=== PATIENT | female | born 1950 | race Caucasian/White ===

== ENCOUNTER → 2021-08-14 | Outpatient (CLI) | payer OTHER ==
[~2021-08-14] MED LIST: APIX5TAB PO; ASPI-556 PO; DRON400T7 PO; METO50TA18 PO; PREM625 PO
== END | disposition home or self-care (01) ==
LOC: RAH 12:38
PROVIDERS: ATTEND Internal Medicine Cardiovascular Disease
DX: Z13.6 Encounter for screening for cardiovascular disorders (principal); I48.0 Paroxysmal atrial fibrillation
CPT/HCPCS: 75571

== ENCOUNTER → 2022-04-27 | Outpatient (CLI) | payer MEDICARE | END | disposition home or self-care (01) | LOC: SHCH 14:55 | PROVIDERS: ATTEND Internal Medicine Cardiovascular Disease | DX: I35.8 Other nonrheumatic aortic valve disorders (principal); I11.9 Hypertensive heart disease without heart failure; I48.0 Paroxysmal atrial fibrillation | CPT/HCPCS: 93306 ==

== ENCOUNTER → 2023-04-29 | Outpatient (CLI) | payer MEDICARE ==
[~2023-04-29] MED LIST changes: +BIOTIN PO; +CALCIUM W/D3 PO; +CARV3.12 PO; +LETR2.5T7 PO; +METR-172 PO; +MVI PO; +NEOM500T PO; +OLME40TA18 PO; +ONDA8TAB12 PO
[2023-04-29 14:47] LABS: BASOPHILS # (AUTO) 0.04 K/uL (0.00-0.20); BASOPHILS % (AUTO) 0.6 % (0.0-5.0); EOSINOPHILS # (AUTO) 0.14 K/uL (0.00-0.70); EOSINOPHILS % (AUTO) 2.2 % (0.0-8.0); HEMATOCRIT 40.6 % (36-48); IMMATURE GRANULOCYTE ABSOLUTE 0.02 K/uL (0-1); LYMPHOCYTES % (AUTO) 14.9 % (21.0-51.0); MEAN CORPUSCULAR HGB CONC 34.5 g/dL (32.0-36.0); MEAN CORPUSCULAR VOLUME 87.1 fL (79-99); MONOCYTES # (AUTO) 0.6 K/uL (0.1-1.0); MONOCYTES % (AUTO) 9.9 % (3.0-13.0); NEUTROPHILS # (AUTO) 4.6 K/uL (1.8-7.7); NEUTROPHILS % (AUTO) 72.1 % (40.0-77.0); PLATELET COUNT (AUTO) 322 K/uL (130-400); RED BLOOD CELL COUNT(AUTO) 4.66 MIL/uL (4.00-5.50); RED CELL DISTRIBUTION WIDTH 13.8 % (11.0-15.5); WHITE BLOOD COUNT (AUTO) 6.4 K/uL (4.8-10.8)
[2023-04-29 15:04] LABS: ALBUMIN 3.9 g/dL (3.5-5.0); BILIRUBIN,TOTAL 0.9 mg/dL (0.2-1.0); CREATININE 0.7 mg/dL (0.5-1.5); POTASSIUM 4.5 mmol/L (3.5-5.1); TOTAL PROTEIN, SERUM 7.2 g/dL (6.0-8.3)
[2023-04-29 15:10] LABS: INR <= 0.93 (0.85-1.15); PROTHROMBIN TIME 10.7 SEC (9.6-11.6)
== END | disposition home or self-care (01) ==
LOC: LAB 14:02
PROVIDERS: ATTEND Internal Medicine
DX: Z01.812 Encounter for preprocedural laboratory examination (principal); C18.2 Malignant neoplasm of ascending colon; I48.0 Paroxysmal atrial fibrillation; K57.30 Diverticulosis of large intestine without perforation or abscess without bleeding; C50.919 Malignant neoplasm of unspecified site of unspecified female breast; Z80.0 Family history of malignant neoplasm of digestive organs
CPT/HCPCS: 36415; 80053; 82378; 85025; 85610; 85730

== ENCOUNTER → 2023-05-03 | Outpatient (CLI) | payer MEDICARE ==
[~2023-05-03] MED LIST changes: -BIOTIN PO; -CALCIUM W/D3 PO; -CARV3.12 PO; +IOHEXOL 350 MG/ML 100ML INFUS..BTL IV ONE; -LETR2.5T7 PO; -METR-172 PO; -MVI PO; -NEOM500T PO; -OLME40TA18 PO; -ONDA8TAB12 PO
== END | disposition home or self-care (01) ==
LOC: RAH 10:19
PROVIDERS: ATTEND Internal Medicine
DX: C18.2 Malignant neoplasm of ascending colon (principal)
CPT/HCPCS: 71260; 74178; Q9967

== ENCOUNTER → 2023-11-08 | Outpatient (CLI) | payer MEDICARE ==
[~2023-11-08] MED LIST changes: -ASPI-556 PO; +BIOTIN PO; +CALCIUM W/D3 PO; +CARV3.12 PO; -DRON400T7 PO; +LETR2.5T7 PO; -METO50TA18 PO; +MVI PO; +OLME40TA18 PO; +ONDA-245 PO; -PREM625 PO
== END | disposition home or self-care (01) ==
LOC: RAH 08:50
PROVIDERS: ATTEND Internal Medicine Cardiovascular Disease
DX: I10 Essential (primary) hypertension (principal); M47.815 Spondylosis without myelopathy or radiculopathy, thoracolumbar region
CPT/HCPCS: 75574; Q9967

== ENCOUNTER 2023-11-16 16:58 | Observation (INO) | payer MEDICARE ==
[~2023-11-16] VITALS: Ht 160 cm; Wt 68.9 kg
[~2023-11-16 16:58] MED LIST changes: -IOHEXOL 350 MG/ML 100ML INFUS..BTL IV ONE
[2023-11-16 17:20] LABS: BASOPHILS # (AUTO) 0.04 K/uL (0.00-0.20); BASOPHILS % (AUTO) 0.6 % (0.0-5.0); EOSINOPHILS # (AUTO) 0.16 K/uL (0.00-0.70); EOSINOPHILS % (AUTO) 2.4 % (0.0-8.0); HEMATOCRIT 39.2 % (36-48); IMMATURE GRANULOCYTE ABSOLUTE 0.01 K/uL (0-1); LYMPHOCYTES # (AUTO) 1.3 K/uL (1.0-4.8); LYMPHOCYTES % (AUTO) 20.1 % (21.0-51.0); MEAN CORPUSCULAR HEMOGLOBIN 28.7 pg (27.0-33.0); MEAN CORPUSCULAR HGB CONC 34.9 g/dL (32.0-36.0); MONOCYTES # (AUTO) 0.7 K/uL (0.1-1.0); MONOCYTES % (AUTO) 11.3 % (3.0-13.0); NEUTROPHILS # (AUTO) 4.3 K/uL (1.8-7.7); NEUTROPHILS % (AUTO) 65.4 % (40.0-77.0); PLATELET COUNT (AUTO) 297 K/uL (130-400); RED BLOOD CELL COUNT(AUTO) 4.78 MIL/uL (4.00-5.50); RED CELL DISTRIBUTION WIDTH 14.7 % (11.0-15.5); WHITE BLOOD COUNT (AUTO) 6.6 K/uL (4.8-10.8)
[2023-11-16 17:29] LABS: CREATININE 0.6 mg/dL (0.5-1.0); POTASSIUM 4.1 mmol/L (3.5-5.1)
[2023-11-16 17:38] LABS: ALBUMIN 3.8 g/dL (3.5-5.0); BILIRUBIN,TOTAL 0.9 mg/dL (0.2-1.0); TOTAL PROTEIN, SERUM 6.9 g/dL (6.0-8.3)
[2023-11-16] MEDS: hydrALAZine 20MG/ML VIAL IV ONE ×2 (17:53→18:18)
[2023-11-16 18:04] LABS: B-TYPE NATRIURETIC PEPTIDE 90 pg/mL (0-100)
[2023-11-16 18:08] LABS: ADD UA MICROSCOPIC YES; APPEARANCE,URINE CLEAR (CLEAR); BILIRUBIN,URINE NEGATIVE (NEGATIVE); COLOR,URINE COLORLESS (YELLOW); GLUCOSE, URINE (UA) NEGATIVE (NEGATIVE); KETONES,URINE NEGATIVE (NEGATIVE); LEUKOCYTE ESTERASE ,URINE NEGATIVE Leu/uL (NEGATIVE); NITRATE,URINE NEGATIVE (NEGATIVE); OCCULT BLOOD,URINE NEGATIVE (NEGATIVE); PROTEIN,URINE NEGATIVE (NEGATIVE); UROBILINOGEN,URINE 0.2 mg/dL (0.2-1.0)
[2023-11-16 18:09] LABS: RBC,URINE 0-1 /HPF (0-1)
[2023-11-16] MEDS ORDERED: POTASSIUM CHLORIDE 20MEQ/100ML 100 ML IV PRN (19:00)
[2023-11-16] MEDS ORDERED: acetaMINOPHEN 650 MG SUPPOSITORY RC PRN (19:00)
[2023-11-16] MEDS ORDERED: KCL 20 MEQ ERTAB PO PRN (19:00)
[2023-11-16] MEDS ORDERED: ONDANSETRON 4MG INJ IVP PRN (19:00)
[2023-11-16] MEDS ORDERED: GLUCAGON 1MG KIT 1 MG ML IM PRN (19:00)
[2023-11-16] MEDS ORDERED: LACTULOSE 20 GM/30 ML UDCUP PO PRN (19:00)
[2023-11-16] MEDS ORDERED: doCUSate SODIUM 100 MG CAP PO PRN (19:00)
[2023-11-16] MEDS ORDERED: POTASSIUM CHLORIDE 10% ELIXIR 20 MEQ/15 ML UDCUP PO PRN (19:00)
[2023-11-16] MEDS ORDERED: TEMAZEPAM 15 MG CAPSULE PO PRN (19:00)
[2023-11-16] MEDS ORDERED: DEXTROSE 50%-WATER 50 ML DISP.SYRIN IV PRN (19:00)
[2023-11-16] MEDS: 0.9% NACL 500ML IV.SOLN 500 ML IV SCH (19:30)
[2023-11-16] MEDS: morPHINE 2 MG SYG IVP ONE (20:51)
[2023-11-16] MEDS: FAMOTIDINE 20MG TAB PO SCH (20:52)
[2023-11-16] MEDS: carVEDIlol 3.125 MG TABLET PO SCH (20:53)
[2023-11-16] MEDS: INSULIN humuLIN R 100 UNIT/ML 3ML SQ SCH (21:00)
[2023-11-16 21:20] VITALS: O2SAT 97
[2023-11-16] MEDS ORDERED: CARV6.2579 PO (23:05)
[2023-11-16] MEDS ORDERED: CLON0.1T PO (23:11)
[2023-11-16] MEDS ORDERED: TELM80TA10 PO (23:11)
[2023-11-16] MEDS ORDERED: NITR0.4T50 SL (23:11)
[2023-11-16] MEDS ORDERED: DOCU-116 PO (23:14)
[2023-11-16] MEDS ORDERED: PSYL660P17 PO (23:15)
[2023-11-17] VITALS (7 sets, daily range): BP systolic 117–184; BP diastolic 65–91; PULSE 64–75; RESP 16–19; TEMP 97.5–99.3; O2SAT 99
[2023-11-17] MEDS ORDERED: NITROGLYCERIN 0.4 MG SL TAB SL PRN
[2023-11-17] MEDS: hydrALAZine 20MG/ML VIAL IV PRN (00:45)
[2023-11-17] MEDS: acetaMINOPHEN 325 MG TAB PO PRN (00:46)
[2023-11-17] MEDS: APIXaban 5 MG TABLET PO ONE (00:46)
[2023-11-17] MEDS: ketOROlac 30MG VIAL (30MG/ML) IVP SCH (03:16)
[2023-11-17 03:55] LABS: SARS-CoV-2, RNA, NAAT NEGATIVE SARS CoV-2 (NEGATIVE)
[2023-11-17 03:59] LABS: INFLUENZA TYPE A Negative For Type A (NEGATIVE); INFLUENZA TYPE B Negative For Type B (NEGATIVE)
[2023-11-17 06:57] LABS: BASOPHILS # (AUTO) 0.03 K/uL (0.00-0.20); BASOPHILS % (AUTO) 0.6 % (0.0-5.0); EOSINOPHILS # (AUTO) 0.13 K/uL (0.00-0.70); EOSINOPHILS % (AUTO) 2.4 % (0.0-8.0); HEMATOCRIT 36.4 % (36-48); IMMATURE GRANULOCYTE ABSOLUTE 0.01 K/uL (0-1); LYMPHOCYTES # (AUTO) 0.9 K/uL (1.0-4.8); LYMPHOCYTES % (AUTO) 16.4 % (21.0-51.0); MEAN CORPUSCULAR HGB CONC 34.3 g/dL (32.0-36.0); MEAN CORPUSCULAR VOLUME 84.5 fL (79-99); MONOCYTES # (AUTO) 0.8 K/uL (0.1-1.0); MONOCYTES % (AUTO) 14.5 % (3.0-13.0); NEUTROPHILS # (AUTO) 3.6 K/uL (1.8-7.7); NEUTROPHILS % (AUTO) 65.9 % (40.0-77.0); PLATELET COUNT (AUTO) 270 K/uL (130-400); RED BLOOD CELL COUNT(AUTO) 4.31 MIL/uL (4.00-5.50); RED CELL DISTRIBUTION WIDTH 15.1 % (11.0-15.5); WHITE BLOOD COUNT (AUTO) 5.4 K/uL (4.8-10.8)
[2023-11-17 07:23] LABS: CREATININE 0.6 mg/dL (0.5-1.0); MAGNESIUM 1.6 mg/dL (1.80-2.40); PHOSPHORUS 4.2 mg/dL (2.5-4.9); THYROID STIMULATING HORMONE 2.86 uIU/mL (0.36-3.74)
[2023-11-17] MEDS: carVEDIlol 6.25 MG TABLET PO SCH (08:27)
[2023-11-17] MEDS: MULTIVITAMIN TABLET PO SCH (08:27)
[2023-11-17] MEDS: APIXaban 5 MG TABLET PO SCH (08:28)
[2023-11-17] MEDS: doCUSate SODIUM 100 MG CAP PO SCH (08:28)
[2023-11-17] MEDS: LoSARTan 100 MG TABLET PO SCH (08:29)
[2023-11-17] MEDS: PSYLLIUM SEED 1 EACH PACKET PO SCH (08:29)
[2023-11-17] MEDS: CHOLECALCIFEROL PO SCH (08:31)
[2023-11-17] MEDS: MAGNESIUM 2GM PREMIX 50ML 50 ML IV PRN (08:31)
[2023-11-17] MEDS: CALCIUM PO SCH (08:31)
[2023-11-17] MEDS ORDERED: NON-FORMULARY MEDICATION 1 EACH (Telmisartan 80 MG) PO SCH (09:00)
[2023-11-17] MEDS ORDERED: PSYLLIUM HUSK 660 GM PO SCH (09:00)
[2023-11-17] MEDS ORDERED: GUM PO SCH (09:00)
[2023-11-17] MEDS: cloNIDine HCL 0.1 MG TABLET PO PRN (14:40)
[2023-11-17] MEDS ORDERED: LOSA-420 PO (15:08)
== END 2023-11-17 16:52 | disposition home or self-care (01) ==
LOC: EDH 16:58 → EDHIP 18:54 → 2AH 20:57
PROVIDERS: ADMIT Internal Medicine; ATTEND Internal Medicine
DX: I48.0 Paroxysmal atrial fibrillation (principal); Z20.822 Contact with and (suspected) exposure to COVID-19; I16.1 Hypertensive emergency; I10 Essential (primary) hypertension; E87.1 Hypo-osmolality and hyponatremia; R06.00 Dyspnea, unspecified; R42 Dizziness and giddiness; E78.5 Hyperlipidemia, unspecified; R41.0 Disorientation, unspecified; R60.0 Localized edema; Z85.3 Personal history of malignant neoplasm of breast; Z85.038 Personal history of other malignant neoplasm of large intestine; Z90.710 Acquired absence of both cervix and uterus; Z79.01 Long term (current) use of anticoagulants; Z92.21 Personal history of antineoplastic chemotherapy; Z98.82 Breast implant status; Z79.899 Other long term (current) drug therapy; Z86.2 Personal history of diseases of the blood and blood-forming organs and certain disorders involving the immune mechanism
CPT/HCPCS: 96375 ×2; 82550; 84484 ×3; 80053; 83880; 85025 ×2; 82948 ×4; 81001; 36415 ×2; 71045; 93880; 99291; 93005 ×4; 96376; 96365; 96366; 84443; 83735; 84100; 80048; 87804 ×2; 87635; 76770; 93306; 93356; G0378 ×21; J7040 ×2; J2270; J0360 ×2; J3475; J1885

== ENCOUNTER 2024-01-04 02:36 | Emergency (ER) | payer MEDICARE ==
[~2024-01-04 02:36] MED LIST changes: -CARV3.12 PO; +CARV6.2579 PO; +CLON0.1T PO; +DOCU-116 PO; +LOSA-420 PO; +NITR0.4T50 SL; -OLME40TA18 PO; -ONDA-245 PO; +PSYL660P17 PO
[2024-01-04] MEDS: morPHINE 4 MG SYG IVP ONE (03:12)
[2024-01-04] MEDS: ASPIRIN 81MG CHEW TAB PO ONE (03:12)
[2024-01-04 03:19] LABS: BASOPHILS # (AUTO) 0.04 K/uL (0.00-0.20); BASOPHILS % (AUTO) 0.7 % (0.0-5.0); EOSINOPHILS # (AUTO) 0.12 K/uL (0.00-0.70); HEMATOCRIT 37.9 % (36-48); IMMATURE GRANULOCYTE ABSOLUTE 0.02 K/uL (0-1); LYMPHOCYTES # (AUTO) 1.4 K/uL (1.0-4.8); LYMPHOCYTES % (AUTO) 23.3 % (21.0-51.0); MEAN CORPUSCULAR HEMOGLOBIN 29.6 pg (27.0-33.0); MEAN CORPUSCULAR HGB CONC 35.6 g/dL (32.0-36.0); MEAN CORPUSCULAR VOLUME 83.1 fL (79-99); MONOCYTES # (AUTO) 0.8 K/uL (0.1-1.0); MONOCYTES % (AUTO) 13.8 % (3.0-13.0); NEUTROPHILS # (AUTO) 3.5 K/uL (1.8-7.7); NEUTROPHILS % (AUTO) 59.9 % (40.0-77.0); PLATELET COUNT (AUTO) 270 K/uL (130-400); RED BLOOD CELL COUNT(AUTO) 4.56 MIL/uL (4.00-5.50); RED CELL DISTRIBUTION WIDTH 13.9 % (11.0-15.5); WHITE BLOOD COUNT (AUTO) 5.9 K/uL (4.8-10.8)
[2024-01-04 03:24] LABS: CREATININE 0.6 mg/dL (0.5-1.0); MAGNESIUM 1.5 mg/dL (1.80-2.40); POTASSIUM 3.8 mmol/L (3.5-5.1)
[2024-01-04 04:00] LABS: B-TYPE NATRIURETIC PEPTIDE 139 pg/mL (0-100)
[2024-01-04] MEDS: hydrALAZine 20MG/ML VIAL IV ONE ×2 (04:33→06:09)
[2024-01-04] MEDS: NITROGLYCERIN 0.4 MG SL TAB SL PRN (04:38)
[2024-01-04 05:41] LABS: APPEARANCE,URINE CLEAR (CLEAR); BILIRUBIN,URINE NEGATIVE (NEGATIVE); COLOR,URINE COLORLESS (YELLOW); GLUCOSE, URINE (UA) NEGATIVE (NEGATIVE); KETONES,URINE NEGATIVE (NEGATIVE); LEUKOCYTE ESTERASE ,URINE NEGATIVE Leu/uL (NEGATIVE); NITRATE,URINE NEGATIVE (NEGATIVE); OCCULT BLOOD,URINE NEGATIVE (NEGATIVE); PH,URINE 6.5 (5.0-8.0); PROTEIN,URINE NEGATIVE (NEGATIVE); UROBILINOGEN,URINE 0.2 mg/dL (0.2-1.0)
[2024-01-04 05:42] LABS: ADD UA MICROSCOPIC NO
[2024-01-04] MEDS: MAGNESIUM 2GM PREMIX 50ML 50 ML IV SCH (06:11)
[2024-01-04 06:34] VITALS: BP 154/51; PULSE 68; RESP 16; O2SAT 98
[2024-01-04] MEDS ORDERED: MAGNESIUM 2GM PREMIX 50ML 50 ML IV STA (07:27)
[2024-01-04] MEDS ORDERED: 0.9%NACL 1000ML 1,000 ML IV ONE (07:30)
== END 2024-01-04 07:56 | disposition home or self-care (01) ==
LOC: EDH 02:36
DX: I11.9 Hypertensive heart disease without heart failure (principal); E11.9 Type 2 diabetes mellitus without complications; Z79.01 Long term (current) use of anticoagulants; Z79.811 Long term (current) use of aromatase inhibitors; Z79.899 Other long term (current) drug therapy; Z90.710 Acquired absence of both cervix and uterus; Z98.890 Other specified postprocedural states
CPT/HCPCS: 99285; 96374; 96375; 71045; 83735; 84484; 80048; 83880; 85025; 81003; 36415; 96376; J3475; J0360; J2270

== ENCOUNTER → 2024-02-03 | Outpatient (CLI) | payer MEDICARE ==
[2024-02-03 13:43] LABS: ALBUMIN 3.8 g/dL (3.5-5.0); BILIRUBIN,TOTAL 0.7 mg/dL (0.2-1.0); CREATININE 0.6 mg/dL (0.5-1.0); POTASSIUM 4.2 mmol/L (3.5-5.1); THYROID STIMULATING HORMONE 0.9 uIU/mL (0.36-3.74); TOTAL PROTEIN, SERUM 6.7 g/dL (6.0-8.3)
[2024-02-07 21:08] LABS: PROTEIN/CREATININE RATIO 195 mg/g creat (0-200)
[2024-02-14 00:08] LABS: U DOPAMINE UG/DAY 115 ug/L (Undefined)
== END | disposition home or self-care (01) ==
LOC: LAB 12:21
PROVIDERS: ATTEND Internal Medicine Cardiovascular Disease
DX: I10 Essential (primary) hypertension (principal); Z79.899 Other long term (current) drug therapy
CPT/HCPCS: 36415; 80053; 82043; 82088; 82382; 82570; 83835; 84156; 84439; 84443; 84481

== ENCOUNTER → 2024-02-17 | Outpatient (CLI) | payer MEDICARE | END | disposition home or self-care (01) | LOC: SHCH 07:53 | PROVIDERS: ATTEND Internal Medicine Cardiovascular Disease | DX: I10 Essential (primary) hypertension (principal) | CPT/HCPCS: 93975 ==

== ENCOUNTER → 2024-04-09 | Outpatient (CLI) | payer MEDICARE ==
[2024-04-09 16:25] LABS: CREATININE 0.7 mg/dL (0.5-1.0); POTASSIUM 4.6 mmol/L (3.5-5.1)
== END | disposition home or self-care (01) ==
LOC: LAB 15:47
PROVIDERS: ATTEND Internal Medicine Cardiovascular Disease
DX: Z01.812 Encounter for preprocedural laboratory examination (principal); I73.9 Peripheral vascular disease, unspecified
CPT/HCPCS: 36415; 80048

== ENCOUNTER → 2024-04-20 | Outpatient (CLI) | payer MEDICARE ==
[~2024-04-20] MED LIST changes: +IOHEXOL 350 MG/ML 100ML INFUS..BTL IV ONE; +IOHEXOL-350 50ML VIAL IV ONE
--- NOTE | 2024-04-20 11:50 | HMCIMG ---
Exam Type: CT angiogram abdomen and pelvis and lower extremities run-off with contrast Exam Type: CT ANGIO ABD AORTA W RUNOFF Clinical Information: PVD Comparison: None Technique: Routine helical scanning at 5mm collimation through the abdomen and pelvis after contrast administration. In addition, sagittal and coronary formations of the abdomen pelvis and surface rendering three-dimensional reconstructions of the abdominal aorta and the bilateral lower extremity arterial system were performed. Findings: The vascular examination is abnormal. There is atheromatous plaque of the abdominal aorta, iliac arteries, superficial femoral arteries and popliteal arteries, without occlusion. Extensive plaque of the runoff vessels is seen bilaterally. Bifurcations are preserved. On the right side, there is significant disease of the anterior and posterior tibial arteries. The anterior tibial artery is occluded above the ankle level and reconstitutes distally. The posterior tibial artery shows severe disease and is occluded above the ankle level and the interosseous artery is also occluded. Runoff is minimal. On the left side, the anterior tibial artery is occluded above the ankle level with immediate reconstitution. Posterior tibial artery shows severe disease and also appears occluded at the ankle level and the interosseous artery shows significant disease and does not reach the mid leg level. There is no aortic aneurysm. There is no occlusion. There is no dissection. There is no extravasation to suggest laceration or rupture. No evidence of nephro or ureterolithiasis is found. No hydronephrosis or ureteral dilatation is seen. The visualized portion of the stomach is unremarkable. It shows no wall thickening. No gross ulceration is seen. It is not overly distended. There are no surrounding inflammatory changes. No wall lesions are identified to suggest cancer. The visualized portion of the spleen is unremarkable. It is not enlarged. The pancreas shows normal anatomy. It is not fatty replaced. It shows no lesions. The pancreatic duct is not dilated. The gallbladder is unremarkable. It shows no cholelithiasis. The gallbladder wall is normal in thickness. There is no pericholecystic fluid. The is no acute or chronic inflammation noted. The adrenal glands are unremarkable. There is no enlargement. No lesions are noted. The visualized portion of the liver is unremarkable. It shows no focal masses. The appendix is unremarkable. It shows no evidence of inflammation. No appendicolith is seen. The small bowel is unremarkable. There is no evidence of dilatation to suggest obstruction. No evidence of adynamic ileus is seen. There is no small bowel wall thickening to suggest enteritis. There is diverticulosis. There is no evidence of acute inflammation to suggest diverticulitis. Postoperative changes of the right colon are seen. The colon is otherwise unremarkable. The urinary bladder is unremarkable. There is no wall thickening to suggest tumor or inflammation. There are no intraluminal calculi. There are no diverticula. There is no evidence of chronic bladder outlet obstruction. There is no evidence of urinary bladder distention to suggest urinary retention. The other pelvic structures are unremarkable. The bony and vascular structures are unremarkable for the patient's age. IMPRESSION: Significant peripheral vascular disease. Other chronic findings. This study was performed using dose reduction techniques to include automated exposure control and/or adjustment of the mA and/or kV according to patient size.
== END | disposition home or self-care (01) ==
LOC: RAH 09:31 → EDSTATUS 10:00
PROVIDERS: ATTEND Internal Medicine Cardiovascular Disease
DX: I73.9 Peripheral vascular disease, unspecified (principal); K57.90 Diverticulosis of intestine, part unspecified, without perforation or abscess without bleeding
CPT/HCPCS: 75635; Q9967 ×2

== ENCOUNTER 2024-08-07 06:57 | Day surgery (SDC) | payer MEDICARE ==
[2024-08-02 11:31] VITALS: BP 138/72; PULSE 60; RESP 16; TEMP 97.3
[2024-08-02 11:32] LABS: BASOPHILS # (AUTO) 0.03 K/uL (0.00-0.20); BASOPHILS % (AUTO) 0.6 % (0.0-5.0); EOSINOPHILS # (AUTO) 0.11 K/uL (0.00-0.70); EOSINOPHILS % (AUTO) 2.3 % (0.0-8.0); HEMATOCRIT 38.3 % (36-48); IMMATURE GRANULOCYTE ABSOLUTE 0.01 K/uL (0-1); LYMPHOCYTES % (AUTO) 21.4 % (21.0-51.0); MEAN CORPUSCULAR HEMOGLOBIN 30.2 pg (27.0-33.0); MEAN CORPUSCULAR HGB CONC 34.2 g/dL (32.0-36.0); MEAN CORPUSCULAR VOLUME 88.2 fL (79-99); MONOCYTES # (AUTO) 0.6 K/uL (0.1-1.0); MONOCYTES % (AUTO) 12.7 % (3.0-13.0); NEUTROPHILS % (AUTO) 62.8 % (40.0-77.0); PLATELET COUNT (AUTO) 347 K/uL (130-400); RED BLOOD CELL COUNT(AUTO) 4.34 MIL/uL (4.00-5.50); RED CELL DISTRIBUTION WIDTH 13.2 % (11.0-15.5); WHITE BLOOD COUNT (AUTO) 4.7 K/uL (4.8-10.8)
[2024-08-02 11:40] LABS: CREATININE 0.6 mg/dL (0.5-1.0); POTASSIUM 4.7 mmol/L (3.5-5.1)
[~2024-08-07] VITALS: Ht 160 cm; Wt 66.8 kg
[~2024-08-07 06:57] MED LIST changes: +AMLO-257 PO; -BIOTIN PO; +FLEC100T3 PO; +FLEC50TA3 PO; -IOHEXOL 350 MG/ML 100ML INFUS..BTL IV ONE; -IOHEXOL-350 50ML VIAL IV ONE; -LOSA-420 PO; -MVI PO; -NITR0.4T50 SL; -PSYL660P17 PO; +SEMA1PEN3 SQ; +TELM80TA10 PO; +mvi PO
[2024-08-07 07:25] VITALS: BP 136/80; PULSE 104; RESP 17; TEMP 97
--- NOTE | 2024-08-07 07:40 | EKG ---
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
[2024-08-07] MEDS ORDERED: proPOFol 10 MG/ML 20ML VIAL IV ONE (10:08)
--- NOTE | 2024-08-07 10:17 | NUR ---
PT SYNCHRONIZED CARDIOVERTED BY DR. ROSENBAUM 150 JOULES PT TOLERATED WELL NAD VSS.
--- NOTE | 2024-08-07 10:26 | NUR ---
PT AWAKE SPEAKING WITH STAFF VSS NAD. DR. ROSENBAUM AT BEDSIDE SPEAKING WITH PT AND FRIEND
[2024-08-07 10:30] VITALS: BP 98/40; PULSE 60; RESP 15; TEMP 97.4
[2024-08-07 10:40] VITALS: BP 111/57; PULSE 61; RESP 14
--- NOTE | 2024-08-07 10:44 | EKG ---
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
[2024-08-07 10:55] VITALS: BP 117/62; PULSE 63; RESP 16
[2024-08-07 11:10] VITALS: BP 128/64; PULSE 58; RESP 14
[2024-08-07 11:25] VITALS: BP 118/67; PULSE 62; RESP 14
--- NOTE | 2024-09-04 12:29 | PRN ---
Procedure Note Date of procedure: 08/07/24 weight Diagnosis: Persistent atrial fibrillation Procedure: Cardioversion Physician: Arsh Rosenbaum MD The patient was brought to the day patient area in a fasting state. Anesthesia was provided by the anesthesia service. Cardioversion was performed with a synchronized shock at 200 joules resulting in sinus rhythm. The patient tolerated the procedure well. Final diagnosis: Persistent atrial fibrillation, status post successful cardioversion Disposition: The patient will be discharged later today and will follow up with me in the office in approximately two weeks. ARSH ROSENBAUM MD Sep 04, 2024 12:29
== END 2024-08-07 11:30 | disposition home or self-care (01) ==
LOC: DAH 06:57
PROVIDERS: ATTEND Internal Medicine Cardiovascular Disease
DX: I48.19 Other persistent atrial fibrillation (principal); I10 Essential (primary) hypertension; I48.0 Paroxysmal atrial fibrillation; E87.1 Hypo-osmolality and hyponatremia; G62.9 Polyneuropathy, unspecified; Z85.038 Personal history of other malignant neoplasm of large intestine; Z79.899 Other long term (current) drug therapy; Z98.890 Other specified postprocedural states; Z82.49 Family history of ischemic heart disease and other diseases of the circulatory system
CPT/HCPCS: 80048; 85025; 36415; 92960; 93005 ×2; J2704; A4620; A4215; A4222; A4221; A4663; A4216; A4606; A4223 ×3; J3490

== ENCOUNTER 2024-11-28 06:44 | Observation (INO) | payer MEDICARE ==
[2024-11-26 11:26] LABS: IMMATURE GRANULOCYTE ABSOLUTE 0.02 K/uL (0-1); NUCLEATED RED BLOOD CELLS 0.0 % (0.0-0.19); PLATELET COUNT (AUTO) 285 K/uL (130-400); RED BLOOD CELL COUNT(AUTO) 4.62 MIL/uL (4.00-5.50); RED CELL DISTRIBUTION WIDTH 14.6 % (11.0-15.5); WHITE BLOOD COUNT (AUTO) 5.6 K/uL (4.8-10.8)
[2024-11-26 11:33] LABS: CREATININE 0.5 mg/dL (0.5-1.0); GLOMERULAR FILTR. RATE CALC 99.0 mL/min (>90); GLUCOSE,RANDOM 103.0 mg/dL (70-105); SODIUM SERUM 130.0 mmol/L (136-145); UREA NITROGEN, BLOOD 7.0 mg/dL (7-18)
[2024-11-26 11:45] LABS: INR 1.06 (0.85-1.15)
[2024-11-26 12:24] VITALS: BP 140/66; PULSE 62; RESP 18; TEMP 97.2
--- NOTE | 2024-11-26 13:50 | EKG ---
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
--- NOTE | 2024-11-27 10:20 | NUR ---
REPORT REPORTED SODIUM AND CHLORIDE TO ROZINA REDMOND. OK TO PROCEED
[2024-11-28] VITALS (14 sets, daily range): BP systolic 127–189; BP diastolic 54–92; PULSE 57–70; RESP 15–19; TEMP 97.7–97.9; O2SAT 97
[~2024-11-28] VITALS: Ht 160 cm; Wt 67.8 kg
[~2024-11-28 06:44] MED LIST changes: -CALCIUM W/D3 PO; -FLEC100T3 PO; +metamucil PO; -mvi PO
[2024-11-28] MEDS ORDERED: LIDOCAINE HCL 400MG/20ML VIAL ONE (08:57)
[2024-11-28] MEDS ORDERED: IODIXANOL 320 MG/ML 100 ML VIAL ONE ×2 (08:57→09:14)
[2024-11-28] MEDS ORDERED: HEParin-NS 1,000 UNIT/500 ML 1,000 ML IV ONE (08:58)
[2024-11-28] MEDS ORDERED: NITROGLYCERIN 50MG VIAL ONE (08:58)
[2024-11-28] MEDS ORDERED: MIDAZOLAM HCL 1 MG/ML 2ML VIAL ONE (09:20)
[2024-11-28] MEDS ORDERED: ASPIRIN 81MG CHEW TAB ONE (10:32)
--- NOTE | 2024-11-28 10:47 | PRN ---
Procedure Note INDICATION FOR PROCEDURE: [] Renovascular hypertension malignant hypertension hypertensive heart disease with diastolic congestive heart failure PROCEDURE: [] Conscious sedation Abdominal aortogram Selective bilateral renal arteriography Intravascular ultrasound of bilateral renal arteries Angioplasty and stent placement to right renal artery with the use of a 6 mm x 12 mm herculink stent Primary stent placement to left renal artery with the use of a 5 mm x 12 mm Herculink stent DATE OF PROCEDURE: November 28, 2024 GROUNDS FOREMAN: Nakul Sandoval MD, F.A.C.C. PROCEDURE NOTE: [] Patient was electively brought to catheterization suite and prepped and draped in sterile fashion. An IV was started if not already in place in both groins were exposed for arterial access. 2% lidocaine was used for local anesthesia and then a micropuncture kit was used to gain access and once free-flowing motor was seen modified Seldinger technique was utilized to place a six Guatemalan sheath into the right common femoral artery. Next an Omni flush catheter was then placed into the abdominal aorta pressure measurements were obtained and then an aortogram was performed. Renal arteries were well-visualized and findings were as described below. Initially an RDC guide catheter was then placed into the left renal artery and contrast injections were performed. Next a BMW wire 0.014 in was then placed in the distal portion of the left renal artery. Intravascular ultrasound catheter was then placed over wire was then done with catheter showing vessel to be a proximally 5.2-5.4 mm with a critical stenosis of 75-80% soft plaque at the proximal segment. I then passed a 5 mm x 12 mm hurt you link lead stent into the ostium and proximal portion and deployed it. This was deployed to nominal pressure. Follow up intravascular ultrasound interrogation revealed excellent stent placement with appropriate size with a well-opposed stent. Next the RTC guide was then attempted to get into the right renal artery but this was a downward turning artery and I then exchanged guides for a IM guide six Guatemalan. We then wired it with the 014 wire BMW and then performed intravascular ultrasound again revealing significant stenosis of greater than 80-85% of the ostial and proximal portion of the right renal artery. This vessel was slightly bigger. I then tried to pass a 6 mm x 12 mm heard yelling stent but secondary to wire and guide I was unable to pass stent. I then decided to get rid of the BMW wire in and I went with a 0.014 in choice PT extra-support wire to Atarax for support and then I used a 5 mm x 12 mm balloon NC to pre dilate the ostial and proximal portion up to 5.22 mm. I then advanced the guide as balloon was deflated and seated it well into the vessel. Next balloon was removed and then a 6 mm x 12 mm hertz healing stent was then placed into the ostial and proximal portion of the right renal artery and deployed to 5.66 mm. I then brought the delivery system back out into the aorta and flared the proximal portion and ostial portion to greater than 6 mm. Follow up contrast injection well no evidence of dissection or perforation. Follow up intravascular ultrasound revealed excellent stent apposition. At end of case sheath shot was done Perclose device was used for closure of arteriotomy site and no complications occurred. FINDINGS: [] Critical stenosis of left renal artery at 75-80% Critical stenosis of right renal artery and 80-85% Successful primary stent placement to left renal artery with the use of a 5 mm x 12 mm Hg herculink stent Successful angioplasty and stent placement to right renal artery with the use of a 6 mm x 12 mm herculink stent PLAN: [] Secondary to patient's other social determinants of health I think it would be best that patient stay in the hospital overnight on observation status. We will initiate aspirin and clopidogrel today. Patient will initiate Eliquis tonight Probable discharge home in a.m. IV hydration Patient will be on aspirin clopidogrel and Eliquis for one month and then clopidogrel and Eliquis for three months total thereafter Eliquis only NAKUL SANDOVAL MD Nov 28, 2024 10:47
[2024-11-28] MEDS ORDERED: GLUCAGON 1MG KIT 1 MG ML IM PRN (11:00)
[2024-11-28] MEDS ORDERED: NITROGLYCERIN 0.4 MG SL TAB SL PRN (11:00)
[2024-11-28] MEDS ORDERED: DEXTROSE 50%-WATER 50 ML DISP.SYRIN IV PRN (11:00)
--- NOTE | 2024-11-28 11:15 | NUR ---
ARRIVED TO UNIT PT ARRIVED TO UNIT. DENIES ANY PAIN AT THE MOMENT. DRESSING TO RIGHT GROIN DRY AND IN TACT. BED POSITION TO LOWEST POSITION PT VERBALIZED UNDERSTANDING OF REMAINING IN BED FOR 2 HOURS. NO FURTHER QUESTIONS AT THIS TIME.
[2024-11-28] MEDS: 0.9%NACL 1000ML 1,000 ML IV SCH (11:27)
--- NOTE | 2024-11-28 15:25 | HP ---
[facility] HISTORY & PHYSICAL Date Patient Seen: Nov 28, 2024 Time of Visit: 15:18 Supervising Physician: BRUNA VEGA Primary Care Physician: AMITA PICKARD Outpatient Specialists: [ ] Inpatient Consults: DR NAKUL SANDOVAL PROBLEM LIST: Renal Artery Stenosis s/p abdominal aortogram with bilateral renal stent placement 11/28/2024 Atrial Fibrillation , on Eliquis HTN HLD Chronic Hyponatremia Hx of Breast CA on Letrozole hx of Colon CA PLAN : IV hydration ,CHEM PANEL IN AM Patient will be on aspirin clopidogrel and Eliquis for one month, and then clopidogrel and Eliquis for three months total,thereafter Eliquis only Patient will initiate Eliquis tonight Aspirin and Plavix started by Cardiology HPI: This is a case of a pleasant 74-year-old woman with a past medical history of hypertension, hyperlipidemia, atrial fibrillation on Eliquis that was currently on hold given recent procedure, that presented for an elective procedure by Dr. Nakul Sandoval . The patient underwent an abdominal aortogram given renovascular hypertension, hypertensive heart disease with diastolic congestive heart failure today on November 28, 2024 and was found to have critical stenosis of the left renal artery at 75-80% and critical stenosis of the right renal artery at 80-85%. The patient underwent successful primary stent placement of the left renal artery with the use of a5 mm x 12 mm Hg herculink stent and successful angioplasty and stent placement of the right renal artery with the use of a 6 mm x 12 mm herculink stent . Given the patient's social determinants the software licensing analyst did contact our services to have the patient admitted overnight for observation. Patient was evaluated postprocedure lying in bed reporting minor back pain which occurs when she lays flat for a prolonged period of time. Otherwise denies any chest pain. In good spirits. PAST MEDICAL HX: see above PAST SURGICAL HX: noncontributory SOCIAL HISTORY: No tobacco, ETOH, or illicit drug use Coded Allergies: No Known Drug Allergies (Unverified Allergy, Unknown, 11/16/23) Uncoded Allergies: DERMABOND (Allergy, Intermediate, ITCHING,BLISTERING, 05/17/23) REVIEW OF SYSTEMS: 12 point ROS reviewed with patient. Pertinent positives mentioned above. Otherwise negative. PHYSICAL EXAM: GENERAL: alert, weak, awake oriented x 3 HEENT: EOMI, Sclera non icteric, moist mucosa NECK: Supple, no JVD, trachea midline LUNGS: Clear breath sounds bilaterally. No wheezes HEART: Regular rate and rhythm. Normal S1 and S2, without murmurs ABD: Abdomen soft, nontender. Bowel sounds present EXT: No clubbing cyanosis or edema, toes are with normal capillary refill and sensation .Pulse normal on DP 2+ and groin with dressing NEURO: Alert and oriented to person, follows commands Vital Signs (last 8hr) Date Time Temp Pulse Resp B/P (MAP) Pulse Ox O2 Delivery O2 Flow Rate FiO2 11/28/24 13:37 60 18 162/74 96 Room Air 11/28/24 13:07 57 18 156/78 97 Room Air 11/28/24 12:37 57 18 159/75 99 Room Air 11/28/24 12:22 60 18 129/75 98 Room Air 11/28/24 12:07 60 18 160/65 96 Room Air 11/28/24 11:37 58 18 153/74 97 Room Air 11/28/24 11:22 59 18 152/79 97 Room Air 11/28/24 11:15 97 Room Air* 0 21 11/28/24 07:20 97.7 70 15 189/92 97 Room Air 21 LABS: DIAGNOSTICS / RADIOLOGY RESULTS: [ ] PLAN NEURO: Minimize central acting medications as possible. Maintain fall precautions, adequate lighting during the day PULMONARY: Supplemental 02 as needed. Maintain aspiration precautions at all times CARDIOVASCULAR: Follow hemodynamics. Vital signs per facility protocol GI & NUTRITION: Continue with nutritional support. Continue stool softeners and laxatives as needed. KIDNEYS & ELECTROLYTES: Strict monitoring of intake, output and overall fluid balance. Avoid nephrotoxic medications to the extent possible. Medications to be dosed according to renal function. Monitor electrolytes and replace as needed ENDOCRINE: Maintain blood glucose between 100-180 at all times. Hypoglycemia protocol in place INFECTIOUS DISEASE: Trend temperature, WBC and procalcitonin level Follow cultures, deescalate antibiotics as soon as possible. Panculture if new onset fever ONCOLOGY/HEMATOLOGY/COAGULATION: Monitor for s/s of bleeding Monitor hemoglobin, coagulation studies as needed SKIN: Pressure ulcer prevention per facility protocol Specialty mattress ORTHO/REHAB: Continue PT/OT Prophylaxis: Continue GI and DVT prophylaxis Code Status: Full Resuscitation Disposition: TBD Other: Total patient care time exceeds 35 minutes excluding all procedures. YOSSI PEDROZA Nov 28, 2024 15:25
[2024-11-28] MEDS: Letrozole 2.5 MG PO SCH (21:00)
[2024-11-28] MEDS: FLECAINIDE ACETATE 100 MG TABLET PO SCH (21:11)
[2024-11-28] MEDS: amLODIPine 5 MG TAB PO SCH (21:11)
[2024-11-29] VITALS: BP 145/66; PULSE 61; RESP 18; TEMP 97.7
[2024-11-29 05:21] LABS: IMMATURE GRANULOCYTE ABSOLUTE 0.02 K/uL (0-1); NUCLEATED RED BLOOD CELLS 0.0 % (0.0-0.19); PLATELET COUNT (AUTO) 266 K/uL (130-400); RED BLOOD CELL COUNT(AUTO) 4.29 MIL/uL (4.00-5.50); RED CELL DISTRIBUTION WIDTH 14.7 % (11.0-15.5); WHITE BLOOD COUNT (AUTO) 5.7 K/uL (4.8-10.8)
[2024-11-29 05:31] LABS: CREATININE 0.6 mg/dL (0.5-1.0); GLOMERULAR FILTR. RATE CALC 95.0 mL/min (>90); GLUCOSE,RANDOM 98.0 mg/dL (70-105); SODIUM SERUM 133.0 mmol/L (136-145); UREA NITROGEN, BLOOD 8.0 mg/dL (7-18)
[2024-11-29 05:57] VITALS: BP 139/60; PULSE 58; RESP 18; TEMP 98
[2024-11-29 08:21] VITALS: BP 134/80; PULSE 64; RESP 18; TEMP 96.9
[2024-11-29] MEDS: ASPIRIN 81MG CHEW TAB PO SCH (09:00)
[2024-11-29] MEDS: GUM PO SCH (09:00)
--- NOTE | 2024-11-29 09:51 | DS ---
[facility] DISCHARGE SUMMARY Date Patient Seen: Nov 29, 2024 Time of Visit: 09:51 Supervising Physician: TAMRA VEGA Primary Care Physician: AMITA PICKARD Outpatient Specialists: [ ] Inpatient Consults: DR NAKUL SANDOVAL PROBLEM LIST: Renal Artery Stenosis s/p abdominal aortogram with bilateral renal stent placement 11/28/2024 Atrial Fibrillation , on Eliquis HTN HLD Chronic Hyponatremia Hx of Breast CA on Letrozole hx of Colon CA HOSPITAL COURSE: This is a case of a pleasant 74-year-old woman with a past medical history of hypertension, hyperlipidemia, atrial fibrillation on Eliquis that was currently on hold given recent procedure, that presented for an elective procedure by Dr. Nakul Sandoval . The patient underwent an abdominal aortogram given renovascular hypertension, hypertensive heart disease with diastolic congestive heart failure today on November 28, 2024 and was found to have critical stenosis of the left renal ar amy at 75-80% and critical stenosis of the right renal artery at 80-85%. The patient underwent successful primary stent placement of the left renal artery with the use of a5 mm x 12 mm Hg herculink stent and successful angioplasty and stent placement of the right renal artery with the use of a 6 mm x 12 mm herculink stent . Given the patient's social determinants the dope dry house operator did contact our services to have the patient admitted overnight for observation. No complications overnight . Minor blood noted on dressing , to be changed , no induration , hematoma noted to Right groin. Pulse 2+ DP on bilateral Le . New Medications: Aspirin (Aspirin 81MG Chew Tab) 81 Mg Tab.chew 81 MG PO DAILY, #30 TAB.CHEW Clopidogrel Bisulfate (Plavix) 75 Mg Tablet 75 MG PO DAILY, #90 TAB Continued Medications: Amlodipine Besylate (Amlodipine Besylate) 5 Mg Tablet 1 TAB PO HS Apixaban (Eliquis) 5 Mg Tablet 5 MG PO BID, TAB Carvedilol (Coreg) 6.25 Mg Tablet 6.25 MG PO BID, TAB Clonidine HCl (Clonidine HCl) 0.1 Mg Tablet 0.1 MG PO TID PRN for IF SBP GREATER THAN 160, TAB Docusate Sodium (Colace) 100 Mg Capsule 100 MG PO BID, CAP Flecainide Acetate (Flecainide Acetate) 50 Mg Tablet 50 MG PO BID, TAB Letrozole (Letrozole) 2.5 Mg Tablet 2.5 MG PO HS, TAB [metamucil] () 3 GUM PO DAILY Semaglutide (Ozempic) 1 Mg/0.75 Ml (4 Mg/3 Ml) Pen.injctr 0.25 MG SQ weekly Telmisartan (Telmisartan) 80 Mg Tablet 80 MG PO AM, TAB PHYSICAL EXAM: GENERAL: alert, weak, awake oriented x 3 HEENT: EOMI, Sclera non icteric, moist mucosa NECK: Supple, no JVD, trachea midline LUNGS: Clear breath sounds bilaterally. No wheezes HEART: Regular rate and rhythm. Normal S1 and S2, without murmurs ABD: Abdomen soft, nontender. Bowel sounds present EXT: No clubbing cyanosis or edema, toes are with normal capillary refill and sensation .Pulse normal on DP 2+ and groin with dressing NEURO: Alert and oriented to person, follows commands FOLLOW-UP: Follow-up with PCP in 2-[address] SANDOVAL IN 1-2 WEEKS RECOMMENDATIONS: See Discharge Instructions This case was seen and discussed with my supervising physician. More than 30 minutes spent on discharge process, including evaluation of the patient, d iscussion with nursing staff, medication reconciliation and follow-up appointments YOSSI PEDROZA Nov 29, 2024 09:51
--- NOTE | 2024-11-29 10:46 | NUR ---
DCP:HOME Pt currently lives at home alone. pt does not have any DME, home health, or provider services. Pt states that she is able to complete ADLs independently. PCP is Dr. Taryn Alfredo and uses [facility] for any RX needs. At [place] pt will want to go home and family can assist with transportation. Addendum: 11/29/24 at 1048 by YOSSI BOOKER SS Amended: Links added.
[2024-11-29 10:47] VITALS: O2SAT 98
[2024-11-29 12:01] VITALS: BP 159/65; PULSE 64; RESP 18; TEMP 97
--- NOTE | 2024-11-29 13:15 | NUR ---
PHYSICIAN ROUND YOVANY REDMOND AT BEDSIDE. ASSESSED PT RIGHT GROIN. NO FURTHER ORDERS GIVEN AT THIS TIME.
[2024-11-29] MEDS ORDERED: CLOP-31 PO (14:36)
[2024-11-29] MEDS ORDERED: ASPI-1005 PO (14:36)
--- NOTE | 2024-11-29 15:50 | NUR ---
DISCHARGE PT PIV DC'D PT VERBALIZED UNDERSTANDING OF DISCHARGE INSTRUCTIONS PT HAD NO FURTHER QUESTIONS AT TIME OF DISCHARGE PT GATHERED AND TOOK ALL BELONGINGS PT GIVEN STENT CARD INFORMATION AND PRESCRIPTION.
== END 2024-11-29 16:00 | disposition home or self-care (01) ==
LOC: DAH 06:44 → DAHIP 06:45 → 3BH 11:20
PROVIDERS: ADMIT Internal Medicine Critical Care Medicine; ATTEND Internal Medicine Critical Care Medicine
DX: I70.1 Atherosclerosis of renal artery (principal); I48.91 Unspecified atrial fibrillation; I11.0 Hypertensive heart disease with heart failure; I50.30 Unspecified diastolic (congestive) heart failure; I15.0 Renovascular hypertension; E87.1 Hypo-osmolality and hyponatremia; E78.5 Hyperlipidemia, unspecified; Z85.3 Personal history of malignant neoplasm of breast; Z85.038 Personal history of other malignant neoplasm of large intestine; Z79.01 Long term (current) use of anticoagulants; Z98.890 Other specified postprocedural states; Z79.899 Other long term (current) drug therapy
CPT/HCPCS: 80048 ×2; 83880; 85025 ×2; 85610; 85730; 36415 ×2; 93005; 37236; 37237; 36252; 37252; 37253; 99156; 99157 ×4; C1769 ×2; C1894 ×2; C1725; C1760; C1887 ×2; C1876 ×2; C1753; G0378 ×25; J3010; J3490 ×2; J1644 ×2; J2250; Q9967 ×2; A4215; A4223 ×3; A4222; A4221; A4663; A4216; A4606